=== PATIENT | female | born 1990 | race Caucasian/White ===

== ENCOUNTER 2016-09-21 14:21 | Emergency (ER) | payer SELFPAY ==
[~2016-09-21] VITALS: Ht 170.2 cm; Wt 115.2 kg
[~2016-09-21 14:21] MED LIST: BUTA1CAP29 PO; CYCL10TA2 PO; ONDA4TAB10 SL; PRED50TA PO
[2016-09-21] MEDS ORDERED: IV NORMAL SALINE 1000ML BAG 1,000 ML IV ONE (15:00)
[2016-09-21] MEDS ORDERED: FENTANYL PF 100 MCG/2 ML VIAL. IV ONE ×2 (15:00→16:30)
[2016-09-21] MEDS ORDERED: ONDANSETRON PF 4 MG/2 ML VIAL. IV ONE (15:00)
--- NOTE | 2016-09-21 15:17 | PHYS DOC ---
Past Medical History Past Medical History: Depression, Migraines Past Surgical History: Cholecystectomy, Smoking: Cigarettes Alcohol Use: None Drug Use: None Adult General Chief Complaint Chief Complaint: ABDOMINAL PAIN HPI HPI Patient is a 25 year old female who presents with upper abdominal pain with nausea and vomiting starting today. She denies fever or diarrhea. She estimates approximately 8 episodes of emesis today. She was seen for similar symptoms last month without any significant findings. LMP was last week. She does not have a PCP. Review of Systems Review of Systems Constitutional: Denies fever or chills. [] Eyes: Denies change in visual acuity, redness, or eye pain. [] HENT: Denies ear pain, nasal congestion or sore throat. [] Respiratory: Denies cough or shortness of breath. [] Cardiovascular: Denies chest pain, palpitations or edema. [] GI: Denies bloody stools or diarrhea. Reports abdominal pain, nausea, and vomiting. : Denies dysuria, hematuria or urinary frequency. [] Musculoskeletal: Denies back pain or joint pain. [] Integument: Denies rash or skin lesions. [] Neurologic: Denies headache, focal weakness or sensory changes. [] Endocrine: Denies polyuria or polydipsia. [] Psych: Denies anxiety or depression. [] All systems reviewed and negative unless otherwise stated in the HPI. Current Medications Current Medications Current Medications Medications (Trade) Dose Ordered Sig/[facility] Start Time Stop Time Status Last Admin Dose Admin Fentanyl Citrate (Fentanyl 2ml Vial) 50 mcg 1X ONCE 09/21/16 15:00 09/21/16 15:01 DC 09/21/16 15:40 50 MCG Ondansetron HCl (Zofran) 8 mg 1X ONCE 09/21/16 15:00 09/21/16 15:01 DC 09/21/16 15:40 8 MG Sodium Chloride (Iv Sodium Chloride 0.9% 1000ml Bag) 1,000 ml @ 1,000 mls/hr 1X ONCE 09/21/16 15:00 09/21/16 15:59 DC 09/21/16 15:38 1,000 MLS/HR Allergies Allergies Allergies Coded Allergies Type Severity Reaction Last Updated Verified diphenhydramine Allergy Unknown rash 11/09/15 Yes Physical Exam Physical Exam Constitutional: Well developed, well nourished, no acute distress, non-toxic appearance. [] HENT: Normocephalic, atraumatic, oropharynx moist. [] Eyes: PERRLA, EOMI, conjunctiva normal, no discharge. [] Neck: Normal range of motion, no tenderness, supple, no stridor. [] Cardiovascular: Heart rate regular rhythm, no murmur. [] Lungs & Thorax: Bilateral breath sounds clear to auscultation without wheezes, rales, or rhonchi. [] Abdomen: Bowel sounds normal, soft, diffuse upper abdominal tenderness, no masses, no pulsatile masses. [] Skin: Warm, dry, no erythema, no rash. [] Back: No midline tenderness, no CVA tenderness. [] Extremities: No tenderness, ROM intact, no edema. Distal pulses equal bilaterally. [] Neurologic: Alert and oriented X 3, normal motor function, normal sensory function, no focal deficits noted. [] Psychologic: Affect normal, judgement normal, mood normal. [] Current Patient Data Vital Signs Vital Signs Date Time Temp Pulse Resp B/P Pulse Ox O2 Delivery O2 Flow Rate FiO2 09/21/16 15:40 18 98 Room Air 09/21/16 15:00 96.2 73 120/83 96.2 Lab Values Laboratory Tests Test 09/21/16 15:15 09/21/16 15:25 Urine Color Yellow Urine Clarity Clear Urine pH 8.5 Urine Specific [place] >=1.030 Urine Protein Negativemg/dL (NEG-TRACE) Urine Glucose (UA) Negativemg/dL (NEG) Urine Ketones (Stick) 40mg/dL (NEG) Urine Blood Negative (NEG) Urine Nitrite Negative (NEG) Urine Bilirubin Negative (NEG) Urine Urobilinogen Dipstick 1.0mg/dL (0.2 mg/dL) Urine Leukocyte Esterase Negative (NEG) Urine RBC 0/HPF (0-2) Urine WBC 1-4/HPF (0-4) Urine Squamous Epithelial Cells Few/LPF Urine Bacteria Few/HPF (0-FEW) Urine Mucus Marked/LPF Urine Test Negative (NEG) White Blood Count 12.4x10^3/uL (4.0-11.0) H Red Blood Count 4.56x10^6/uL (3.50-5.40) Hemoglobin 13.3g/dL (12.0-15.5) Hematocrit 39.9% (36.0-47.0) Mean Corpuscular Volume 88fL (79-100) Mean Corpuscular Hemoglobin 29pg (25-35) Mean Corpuscular Hemoglobin Concent 33g/dL (31-37) Red Cell Distribution Width 12.2% (11.5-14.5) Platelet Count 292x10^3/uL (140-400) Neutrophils (%) (Auto) 89% (31-73) H Lymphocytes (%) (Auto) 6% (24-48) L Monocytes (%) (Auto) 4% (0-9) Eosinophils (%) (Auto) 0% (0-3) Basophils (%) (Auto) 0% (0-3) Neutrophils # (Auto) 11.1x10^3uL (1.8-7.7) H Lymphocytes # (Auto) 0.8x10^3/uL (1.0-4.8) L Monocytes # (Auto) 0.5x10^3/uL (0.0-1.1) Eosinophils # (Auto) 0.0x10^3/uL (0.0-0.7) Basophils # (Auto) 0.0x10^3/uL (0.0-0.2) Segmented Neutrophils % 90% (35-66) H Lymphocytes % 7% (24-48) L Monocytes % 3% (0-10) Platelet Estimate Adequate (ADEQUATE) Sodium Level 139mmol/L (136-145) Potassium Level 3.4mmol/L (3.5-5.1) L Chloride Level 102mmol/L (98-107) Carbon Dioxide Level 24mmol/L (21-32) Anion Gap 13 (6-14) Blood Urea Nitrogen 7mg/dL (7-20) Creatinine 0.5mg/dL (0.6-1.0) L Estimated GFR (Cockcroft-Gault) 148.0 BUN/Creatinine Ratio 14 (6-20) Glucose Level 126mg/dL (70-99) H Calcium Level 9.0mg/dL (8.5-10.1) Total Bilirubin 0.3mg/dL (0.2-1.0) Aspartate Amino Transferase (AST) 19U/L (15-37) Alanine Aminotransferase (ALT) 28U/L (14-59) Alkaline Phosphatase 68U/L (46-116) Total Protein 7.7g/dL (6.4-8.2) Albumin 3.8g/dL (3.4-5.0) Albumin/Globulin Ratio 1.0 (1.0-1.7) Lipase 135U/L (73-393) Laboratory Tests 09/21/16 15:25 Laboratory Tests 09/21/16 15:25 EKG EKG [] Radiology/Procedures Radiology/Procedures Acute abdominal x-ray does not show any sign of obstruction. There is a large amount of stool within the colon. Course & Med Decision Making Course & Med Decision Making Pertinent Labs and Imaging studies reviewed. (See chart for details) Patient is a 25-year-old female presents with upper abdominal pain with nausea and vomiting starting today. On exam, she has tenderness diffusely across the upper abdomen without lower abdominal tenderness. Her pain and nausea improved with IV fentanyl, Zofran, and fluids. Her white blood cell count is mildly elevated, likely due to you to vomiting. There are no other significant laboratory abnormalities. She is discharged home with prescription for Agar and Phenergan. She is instructed to follow-up with a primary care provider. Return precautions were discussed. She verbalizes understanding and agrees with plan. Dragon Disclaimer Dragon Disclaimer This electronic medical record was generated, in whole or in part, using a voice recognition dictation system. Departure Departure Impression: Primary Impression: Abdominal pain Additional Impression: Nausea & vomiting Disposition: 01 HOME, SELF-CARE Condition: IMPROVED Referrals: NO PCP (PCP) Patient Instructions: Abdominal Pain, [id number], Nausea and Vomiting, Easy- to-Read Additional Instructions: You were seen for abdominal pain with nausea and vomiting. There were no concerning abnormalities on your labs or x-ray. You do appear to have a large amount of stool in your colon. Please take the prescribed pain and nausea medication as directed. Do not drive or operate heavy machinery while taking pain medication. Please be sure you're drinking plenty of liquids to stay hydrated. Start with liquids only and advance diet slowly. Start with the BRAT diet when starting solid foods, bananas, rice, applesauce, and toast. Please follow-up with a primary care provider in the next 1-2 days if your symptoms continue. Return to the emergency department if you continue to have vomiting, diarrhea, bloody stools, fever, severe pain, or other new or concerning symptoms. Scripts Promethazine Hcl 25 Mg Tablet1 Tab PO PRN Q6HRS PRN NAUSEA/VOMITING #20 TAB Prov:ELIZABETH HURTADO 09/21/16 Hydrocodone/Apap 5-325 (Agar 5-325 Tablet)1 Each Tablet1 Tab PO PRN Q6HRS PRN PAIN #10 TAB Prov:ELIZABETH HURTADO 09/21/16 Problem Qualifiers Primary Impression: Abdominal pain Abdominal location: upper abdomen, unspecified Qualified Code: R10.10 - Upper abdominal pain, unspecified Additional Impression: Nausea & vomiting Vomiting type: unspecified Vomiting Intractability: non-intractable Qualified Code: R11.2 - Nausea with vomiting, unspecified ELIZABETH HURTADO Sep 21, 2016 15:17
[2016-09-21 15:32] LABS: BASO % 0 % (0-3); EOS % 0 % (0-3); HEMATOCRIT 39.9 % (36.0-47.0); HEMOGLOBIN 13.3 g/dL (12.0-15.5); LYMPH # 0.8 x10^3/uL (1.0-4.8); LYMPH % 6 % (24-48); MEAN CORPUSCULAR HEMOGLOBIN 29 pg (25-35); MEAN CORPUSCULAR HGB CONC 33 g/dL (31-37); MEAN CORPUSCULAR VOLUME 88 fL (79-100); MONO % 4 % (0-9); NEUT % 89 % (31-73); PLATELET COUNT 292 x10^3/uL (140-400); RED BLOOD COUNT 4.56 x10^6/uL (3.50-5.40); RED CELL DISTRIBUTION WIDTH 12.2 % (11.5-14.5); WHITE BLOOD COUNT 12.4 x10^3/uL (4.0-11.0)
[2016-09-21 15:35] LABS: BILIRUBIN,URINE NEGATIVE (NEG); GLUCOSE,URINE NEGATIVE (NEG); NITRITE,URINE NEGATIVE (NEG); PH,URINE 8.5
[2016-09-21 15:53] LABS: CREATININE 0.5 mg/dL (0.6-1.0); POTASSIUM 3.4 mmol/L (3.5-5.1)
[2016-09-21 15:58] LABS: ALBUMIN 3.8 g/dL (3.4-5.0); TOTAL BILIRUBIN 0.3 mg/dL (0.2-1.0); TOTAL PROTEIN 7.7 g/dL (6.4-8.2)
[2016-09-21 15:59] LABS: BACTERIA,URINE FEW /HPF (0-FEW); PROTEIN,URINE NEGATIVE (NEG-TRACE); RBC,URINE 0 /HPF (0-2); SQUAMOUS EPITHELIAL CELL,UR FEW /LPF
[2016-09-21 16:02] LABS: NEG OBC UR NEG; POS OBC UR POS
[2016-09-21 16:15] LABS: PLT ESTIMATE ADEQUATE (ADEQUATE)
[2016-09-21] MEDS ORDERED: HYDR-971 PO (16:36)
[2016-09-21] MEDS ORDERED: PROM25TA10 PO (16:36)
--- NOTE | 2016-09-21 16:43 | RAD ---
Abdomen series with chest, 09/21/2016: History: Upper abdominal pain The abdominal gas pattern is unremarkable without evidence of obstruction. There is a moderate amount of stool in the colon. No free air is seen in the abdomen. Surgical clips are present in the right upper quadrant. There is no evidence of organomegaly. Lower pelvic calcifications are compatible with phleboliths. The heart size is normal. The lungs are clear. IMPRESSION: No acute abdominal abnormality is detected.
[2016-09-21 16:46] VITALS: BP 115/74
== END 2016-09-21 16:57 | disposition home or self-care (01) ==
LOC: ER 14:21
DX: R10.10 Upper abdominal pain, unspecified (principal); R11.2 Nausea with vomiting, unspecified; F17.210 Nicotine dependence, cigarettes, uncomplicated; F32.9 Major depressive disorder, single episode, unspecified; Z90.49 Acquired absence of other specified parts of digestive tract; Z98.890 Other specified postprocedural states; Z88.8 Allergy status to other drugs, medicaments and biological substances
CPT/HCPCS: 36415; 74022; 80053; 81001; 81025; 83690; 85007; 85027; 96361; 96374; 96375; 96376; 99285; J2405; J3010; J7030

== ENCOUNTER 2016-10-20 12:25 | Emergency (ER) | payer SELFPAY ==
[~2016-10-20] VITALS: Ht 165.1 cm; Wt 73.9 kg
[~2016-10-20 12:25] MED LIST changes: +HYDR-971 PO; +PROM25TA10 PO
[2016-10-20 14:03] VITALS: BP 128/80
--- NOTE | 2016-10-20 14:14 | PHYS DOC ---
Past Medical History Past Medical History: Depression, Migraines Past Surgical History: Cholecystectomy, Alcohol Use: None Drug Use: None Adult General Chief Complaint Chief Complaint: FLU SYMPTOM HPI HPI Patient is a 25 year old female presents to emergency department complaining of fever chills generalized body aches and discomfort and occasional ear pain and discomfort. She states she had some nausea feeling although has not vomited. She denies any diarrhea. She has been taken ibuprofen for generalized body aches and discomfort with minimal relief. She states that she's been exposed to the flu at work. She does have a sick roommate. Review of Systems Review of Systems Constitutional: subjective fever Eyes: Denies change in visual acuity, redness, or eye pain [] HENT: nasal congestion slight sore throat [] Respiratory: cough denies shortness of breath [] Cardiovascular: No additional information not addressed in HPI [] GI: Denies abdominal pain. C/o nausea denies vomiting, denies diarrhea : Denies dysuria or hematuria [] Musculoskeletal: Denies back pain or joint pain [] Integument: Denies rash or skin lesions [] Neurologic: Denies headache, focal weakness or sensory changes [] Allergies Allergies Allergies Coded Allergies Type Severity Reaction Last Updated Verified diphenhydramine Allergy Unknown rash 11/09/15 Yes Physical Exam Physical Exam Constitutional: Well developed, well nourished, no acute distress, non-toxic appearance. [] HENT: Normocephalic, atraumatic, bilateral external ears normal, oropharynx moist, no oral exudates, nose normal. Bilateral tympanic membranes appear to be normal. Throat with erythematous no exudate, no postnasal drip noted. Eyes: PERRLA, EOMI, conjunctiva normal, no discharge. [] Neck: Normal range of motion, no tenderness, supple, no stridor. [] Cardiovascular:Heart rate regular rhythm, no murmur [] Lungs & Thorax: Bilateral breath sounds clear to auscultation [] Skin: Warm, dry, no erythema, no rash. [] Back: No tenderness Extremities: No tenderness, no cyanosis, no clubbing, ROM intact, no edema. [] Neurologic: Alert and oriented X 3, normal motor function, normal sensory function, no focal deficits noted. [] Psychologic: Affect normal, judgement normal, mood normal. [] Current Patient Data Vital Signs Vital Signs Date Time Temp Pulse Resp B/P Pulse Ox O2 Delivery O2 Flow Rate FiO2 10/20/16 14:03 93 17 99 Room Air Lab Values Laboratory Tests Test 10/20/16 14:00 Influenza Type A Antigen Negative (NEGATIVE) Influenza Type B Antigen Negative (NEGATIVE) EKG EKG [] Radiology/Procedures Radiology/Procedures [] Course & Med Decision Making Course & Med Decision Making Pertinent Labs and Imaging studies reviewed. (See chart for details) Wounds as well as were negative. Patient will be encouraged to drink plenty fluids such as water or Gatorade or propel. Tylenol or ibuprofen for fever chills or generalized body aches and discomfort [id number] medications may be used for cough and congestion. Recommended following up primary care physician's 5-7 days. Since symptoms to return back to emergency department as been provided. Patient be discharged home in stable condition. [] Dragon Disclaimer Dragon Disclaimer This electronic medical record was generated, in whole or in part, using a voice recognition dictation system. Departure Departure Impression: Primary Impression: Upper respiratory infection Disposition: 01 HOME, SELF-CARE Condition: STABLE Referrals: NO PCP (PCP) Patient Instructions: Upper Respiratory Infection, Adult, [id number] Additional Instructions: Home to rest Tylenol or Ibuprofen for fever, chills or generalized body aches and discomfort Drink plenty of fluids such as water, gatorade, or propel You may use over the counter medication for cough and congestion as directed by manufacture Followup with primary care provide in 5-7 days Return to emergency department as needed for signs and symptoms that become worse. LILI TSAI NP Oct 20, 2016 14:14
[2016-10-20 15:05] LABS: OBC FLU VALID
== END 2016-10-20 15:33 | disposition home or self-care (01) ==
LOC: ER 12:32
DX: J06.9 Acute upper respiratory infection, unspecified (principal); G43.909 Migraine, unspecified, not intractable, without status migrainosus; Z88.8 Allergy status to other drugs, medicaments and biological substances
CPT/HCPCS: 87804; 99284

== ENCOUNTER 2017-03-10 19:51 | Emergency (ER) | payer SELFPAY ==
[~2017-03-10] VITALS: Ht 170.2 cm; Wt 56.7 kg
[2017-03-10 20:10] VITALS: BP 136/60
[2017-03-10] MEDS ORDERED: SULF1TAB24 PO (20:51)
[2017-03-10] MEDS ORDERED: PRED50TA PO (20:51)
--- NOTE | 2017-03-10 20:51 | PHYS DOC ---
Past Medical History Past Medical History: Depression, Migraines Past Surgical History: Appendectomy, Cholecystectomy, Alcohol Use: None Drug Use: None Adult General Chief Complaint Chief Complaint: INSECT BITE HPI HPI Patient is a 26 year old female who presents with what she believes is a spider bite on the right thigh that she noted yesterday. Patient stated the area has grown red and bigger. Patient denies any drainage from the area. Review of Systems Review of Systems Constitutional: Denies fever or chills [] Eyes: Denies change in visual acuity, redness, or eye pain [] Musculoskeletal: Denies back pain or joint pain [] Integument: spider bite on the right thigh Neurologic: Denies headache, focal weakness or sensory changes [] Endocrine: Denies polyuria or polydipsia [] Allergies Allergies Allergies Coded Allergies Type Severity Reaction Last Updated Verified diphenhydramine Allergy Unknown rash 11/09/15 Yes Physical Exam Physical Exam Constitutional: Well developed, well nourished, no acute distress, non-toxic appearance. [] HENT: Normocephalic, atraumatic, bilateral external ears normal, oropharynx moist, no oral exudates, nose normal. [] Skin: right inner thigh with an area of cellulitis approx. 3X3 cm with a bite humphrey in the center. The area is warm and tender to touch but not fluctuant. Back: No tenderness, no CVA tenderness. [] Extremities: No tenderness, no cyanosis, no clubbing, ROM intact, no edema. [] Neurologic: Alert and oriented X 3, normal motor function, normal sensory function, no focal deficits noted. [] Psychologic: Affect normal, judgement normal, mood normal. [] Current Patient Data Vital Signs Vital Signs Date Time Temp Pulse Resp B/P (MAP) Pulse Ox O2 Delivery O2 Flow Rate FiO2 03/10/17 20:10 98.2 72 16 98 Room Air 98.2 EKG EKG [] Radiology/Procedures Radiology/Procedures [] Course & Med Decision Making Course & Med Decision Making Pertinent Labs and Imaging studies reviewed. (See chart for details) Patient is in the ED with right thigh cellulitis, she believes is from a spider bite. She was discharged with Bactrim for 10 days, and prednisone. Provided return precautions and discharged in stable condition. Dragon Disclaimer Dragon Disclaimer This electronic medical record was generated, in whole or in part, using a voice recognition dictation system. Departure Departure Impression: Primary Impression: Cellulitis of right lower extremity Disposition: HOME, SELF-CARE Condition: STABLE Referrals: NO PCP (PCP) Follow-up with your doctor in 1-2 weeks Patient Instructions: Cellulitis, [id number] Additional Instructions: You were seen with right thigh cellulitis. Keep the area clean and dry. Take the prescribed antibiotics until completed. Come back to the ED if symptoms worsen. Scripts Prednisone (PREDNISONE) 50 Mg Tablet 1 TAB PO DAILY, #5 TAB Prov: ROSELIA LARRY APRN 03/10/17 Sulfamethoxazole/Trimethoprim (BACTRIM DS TABLET) 1 Each Tablet 1 TAB PO BID, #20 TAB Prov: ROSELIA LARRY APRN 03/10/17 ROSELIA LARRY APRN Mar 10, 2017 20:51
[2017-03-10] MEDS ORDERED: DIPHTH,PERTUSS(ACELL),TET TOX 0.5 ML DISP.SYRIN. VAX IM ONE (21:30)
== END 2017-03-10 21:07 | disposition home or self-care (01) ==
LOC: ER 19:51
DX: L03.115 Cellulitis of right lower limb (principal); G43.909 Migraine, unspecified, not intractable, without status migrainosus; Z88.8 Allergy status to other drugs, medicaments and biological substances; T63.301A Toxic effect of unspecified spider venom, accidental (unintentional), initial encounter; Y93.89 Activity, other specified; Y99.8 Other external cause status; Y92.89 Other specified places as the place of occurrence of the external cause
CPT/HCPCS: 99283

== ENCOUNTER 2019-09-04 15:02 | Emergency (ER) | payer SELFPAY ==
[~2019-09-04] VITALS: Ht 172.7 cm; Wt 68.0 kg
[~2019-09-04 15:02] MED LIST changes: +HYDR-3164 PO; -HYDR-971 PO; +SULF1TAB24 PO
--- NOTE | 2019-09-04 15:31 | PHYS DOC ---
Past Medical History Past Medical History: Depression, Migraines Past Surgical History: Appendectomy, Cholecystectomy, Alcohol Use: None Drug Use: None Adult General Chief Complaint Chief Complaint: MENSTRUAL PAIN/CRAMPS [facility] HPI Patient is a 28 year old female with history of depression, migraine headaches, who presents to the ED today complaining of vaginal bleeding that began August 21, 2019 patient denies any abdominal pain, nausea or vomiting. She states she doesn't know if she is or not. She reports she called ask a nurse and spoke to a doctor yesterday who informed her she needs to be evaluated and needs to be NPO until she is evaluted, she states she was not comfortable talking to a man and refused to continue with the conversation neither did she stay NPO. She is laughing as we talk, RN in the room. Review of Systems Review of Systems Constitutional: Denies fever or chills [] Eyes: Denies change in visual acuity, redness, or eye pain [] HENT: Denies nasal congestion or sore throat [] Respiratory: Denies cough or shortness of breath [] Cardiovascular: No additional information not addressed in HPI [] GI: Reports Vaginal bleeding. Denies abdominal pain, nausea, vomiting, bloody stools or diarrhea [] : Denies dysuria or hematuria [] Musculoskeletal: Denies back pain or joint pain [] Integument: Denies rash or skin lesions [] Neurologic: Denies headache, focal weakness or sensory changes [] All other systems were reviewed and found to be within normal limits, except as documented in this note. Allergies Allergies Allergies Coded Allergies Type Severity Reaction Last Updated Verified diphenhydramine Allergy Unknown rash 11/09/15 Yes Physical Exam Physical Exam Constitutional: Well developed, well nourished, no acute distress, non-toxic appearance. [] HENT: Normocephalic, atraumatic, bilateral external ears normal, oropharynx moist, no oral exudates, nose normal. [] Eyes: PERRLA, EOMI, conjunctiva normal, no discharge. [] Neck: Normal range of motion, no tenderness, supple, no stridor. [] Cardiovascular:Heart rate regular rhythm, no murmur [] Lungs & Thorax: Bilateral breath sounds clear to auscultation [] Abdomen: Bowel sounds normal, soft, no tenderness, no masses, no pulsatile masses. [] Pelvic exam External pelvic appears normal, cervix is visualized, no CMT no adnexal tenderness, trace amount of bright red blood in the vaginal vault Skin: Warm, dry, no erythema, no rash. [] Back: No tenderness, no CVA tenderness. [] Extremities: No tenderness, no cyanosis, no clubbing, ROM intact, no edema. [] Neurologic: Alert and oriented X 3, normal motor function, normal sensory function, no focal deficits noted. [] Psychologic: Laughing during the conversation Current Patient Data Vital Signs Vital Signs Date Time Temp Pulse Resp B/P (MAP) Pulse Ox O2 Delivery O2 Flow Rate FiO2 09/04/19 17:18 64 16 121/53 (75) 98 Room Air 09/04/19 15:15 98.2 98.2 Lab Values Laboratory Tests Test 09/04/19 15:05 09/04/19 15:15 09/04/19 15:45 Urine Collection Type Unknown Urine Color [place] Urine Clarity Clear Urine pH 5.5 Urine Specific [place] >=1.030 Urine Protein Negative mg/dL (NEG-TRACE) Urine Glucose (UA) Negative mg/dL (NEG) Urine Ketones (Stick) Negative mg/dL (NEG) Urine Blood Moderate (NEG) Urine Nitrite Negative (NEG) Urine Bilirubin Small (NEG) Urine Urobilinogen Dipstick 0.2 mg/dL (0.2 mg/dL) Urine Leukocyte Esterase Negative (NEG) Urine RBC 6-10 /HPF (0-2) Urine WBC Occ /HPF (0-4) Urine Squamous Epithelial Cells Few /LPF Urine Bacteria 0 /HPF (0-FEW) Urine Mucus Marked /LPF Urine Opiates Screen Neg (NEG) Urine Methadone Screen Neg (NEG) Urine Barbiturates Neg (NEG) Urine Phencyclidine Screen Neg (NEG) Urine Amphetamine/Methamphetamine Neg (NEG) Urine Benzodiazepines Screen Neg (NEG) Urine Cocaine Screen Neg (NEG) Urine Cannabinoids Screen Neg (NEG) Urine Ethyl Alcohol Neg (NEG) POC Urine HCG, Qualitative Hcg positive (Negative) White Blood Count 8.6 x10^3/uL (4.0-11.0) Red Blood Count 4.76 x10^6/uL (3.50-5.40) Hemoglobin 14.2 g/dL (12.0-15.5) Hematocrit 42.3 % (36.0-47.0) Mean Corpuscular Volume 89 fL (79-100) Mean Corpuscular Hemoglobin 30 pg (25-35) Mean Corpuscular Hemoglobin Concent 34 g/dL (31-37) Red Cell Distribution Width 12.8 % (11.5-14.5) Platelet Count 268 x10^3/uL (140-400) Neutrophils (%) (Auto) 78 % (31-73) H Lymphocytes (%) (Auto) 15 % (24-48) L Monocytes (%) (Auto) 6 % (0-9) Eosinophils (%) (Auto) 1 % (0-3) Basophils (%) (Auto) 1 % (0-3) Neutrophils # (Auto) 6.7 x10^3/uL (1.8-7.7) Lymphocytes # (Auto) 1.3 x10^3/uL (1.0-4.8) Monocytes # (Auto) 0.5 x10^3/uL (0.0-1.1) Eosinophils # (Auto) 0.1 x10^3/uL (0.0-0.7) Basophils # (Auto) 0.0 x10^3/uL (0.0-0.2) Maternal Serum HCG Beta Subunit 6387 mIU/mL (0-5) H Sodium Level 139 mmol/L (136-145) Potassium Level 3.7 mmol/L (3.5-5.1) Chloride Level 102 mmol/L (98-107) Carbon Dioxide Level 28 mmol/L (21-32) Anion Gap 9 (6-14) Blood Urea Nitrogen 8 mg/dL (7-20) Creatinine 0.6 mg/dL (0.6-1.0) Estimated GFR (Cockcroft-Gault) 117.4 BUN/Creatinine Ratio 13 (6-20) Glucose Level 90 mg/dL (70-99) Calcium Level 8.6 mg/dL (8.5-10.1) Total Bilirubin 0.3 mg/dL (0.2-1.0) Aspartate Amino Transferase (AST) 16 U/L (15-37) Alanine Aminotransferase (ALT) 19 U/L (14-59) Alkaline Phosphatase 67 U/L (46-116) Total Protein 7.2 g/dL (6.4-8.2) Albumin 3.6 g/dL (3.4-5.0) Albumin/Globulin Ratio 1.0 (1.0-1.7) Ethyl Alcohol Level < 10 mg/dL (0-10) Laboratory Tests 09/04/19 15:45 Laboratory Tests 09/04/19 15:45 Microbiology 09/04/19 Wet Prep - Final, Complete EKG EKG [] Radiology/Procedures Radiology/Procedures []PROCEDURE: OB <14 WKS W/TV EXAM: Obstetric sonogram. HISTORY: Vaginal bleeding. TECHNIQUE: Sonographic imaging of the pelvis was performed. COMPARISON: None. FINDINGS: The uterus measures 9.5 x 4.6 cm. The cervix is closed and measures 3.3 cm in length. There is a single intrauterine gestational sac with pole. The crown-rump length is 3.5 mm, corresponding with a gestational age of 6 weeks and 0 days. The mean sac diameter is 1.20 cm, corresponding with a gestational age of 6 weeks and 0 days. The distal sac is abnormally located within the lower uterine segment and is abnormal in configuration. No subchorionic hematoma is seen. No cardiac activity is seen. No yolk sac is seen. The right ovary is unremarkable. The left ovary is not seen. IMPRESSION: 1. Abnormally positioned gestational sac within the lower uterine segment with abnormal configuration. There is a pole with crown-rump length corresponding with a gestational age of 6 weeks and 0 days. No cardiac activity is seen. This may be due to relative early gestation. However, given the aforementioned abnormality of the gestational sac, this is more concerning for intrauterine demise. Short-term follow-up within one week can be performed for confirmation. 2. Obscured left ovary. Electronically signed by: Kae Najera MD (09/04/2019 4:40 PM) [facility] [place] DICTATED and SIGNED BY: KAE NAJERA MD DATE: 09/04/19 1640 Course & Med Decision Making Course & Med Decision Making Pertinent Labs and Imaging studies reviewed. (See chart for details) This is a 28-year-old female patient presented to the ED today with vaginal bleeding that began August 21, 2019. Positive urine hCG, urine analysis is negative for infection. Beta hCG is 6387, CBC with normal WBC, normal hemoglobin and hematocrit. CMP with no acute findings, wet prep negative. Blood group A positive OB ultrasound -Abnormally positioned gestational sac within the lower uterine segment with abnormal configuration. There is a pole with crown-rump length corresponding with a gestational age of 6 weeks and 0 days. No cardiac activity is seen. This may be due to relative early gestation. However, given the aforementioned abnormality of the gestational sac, this is more concerning for intrauterine demise. Short-term follow-up within one week can be performed for confirmation. The above results were discussed with patient with most concerning issue being demise. Instructed this patient to follow up with an [facility] in the next 2 days for beta hCG and follow-up ultrasound. Recommended bedrest. Provided return precautions. Dragon Disclaimer Dragon Disclaimer This electronic medical record was generated, in whole or in part, using a voice recognition dictation system. Departure Departure Impression: Primary Impression: Threatened miscarriage Disposition: 01 HOME, SELF-CARE Condition: STABLE Referrals: NO PCP (PCP) ALL GEE MD follow up in 2 days with your OBGYN Patient Instructions: Threatened Miscarriage, [id number] Additional Instructions: You were evaluated in the emergency room for vaginal bleeding in . Your OB ultrasound shows you are 6 weeks though we could not find any activity, there is concern you could have demise. We would like you to follow-up with your [facility] in 2 days for repeat beta hCG as well as ultrasound. Your beta hCG today is 6387. Your blood type is A+ ROSELIA LARRY APRN Sep 04, 2019 15:31
[2019-09-04 15:40] LABS: BILIRUBIN,URINE SMALL (NEG); CLARITY,URINE CLEAR; COLOR,URINE AMBER; NITRITE,URINE NEGATIVE (NEG); PH,URINE 5.5; PROTEIN,URINE NEGATIVE (NEG-TRACE); UROBILINOGEN,URINE 0.2 mg/dL (0.2 mg/dL)
[2019-09-04 15:48] LABS: SQUAMOUS EPITHELIAL CELL,UR FEW /LPF
[2019-09-04 15:49] LABS: BACTERIA,URINE 0 /HPF (0-FEW); WBC,URINE OCC /HPF (0-4)
[2019-09-04 15:59] LABS: BASO % 1 % (0-3); EOS # 0.1 x10^3/uL (0.0-0.7); EOS % 1 % (0-3); HEMATOCRIT 42.3 % (36.0-47.0); HEMOGLOBIN 14.2 g/dL (12.0-15.5); LYMPH # 1.3 x10^3/uL (1.0-4.8); LYMPH % 15 % (24-48); MEAN CORPUSCULAR HEMOGLOBIN 30 pg (25-35); MEAN CORPUSCULAR HGB CONC 34 g/dL (31-37); MEAN CORPUSCULAR VOLUME 89 fL (79-100); MONO # 0.5 x10^3/uL (0.0-1.1); MONO % 6 % (0-9); NEUT # 6.7 x10^3/uL (1.8-7.7); NEUT % 78 % (31-73); PLATELET COUNT 268 x10^3/uL (140-400); RED BLOOD COUNT 4.76 x10^6/uL (3.50-5.40); RED CELL DISTRIBUTION WIDTH 12.8 % (11.5-14.5); WHITE BLOOD COUNT 8.6 x10^3/uL (4.0-11.0)
[2019-09-04 16:08] LABS: CALCIUM 8.6 mg/dL (8.5-10.1); CREATININE 0.6 mg/dL (0.6-1.0); GFR 117.4; POTASSIUM 3.7 mmol/L (3.5-5.1)
[2019-09-04 16:12] LABS: BARBITURATES NEG (NEG); BENZODIAZEPINES NEG (NEG); CANNABINOIDS NEG (NEG); COCAINE NEG (NEG); METHADONE NEG (NEG); OPIATES NEG (NEG); PHENCYCLIDINE NEG (NEG)
[2019-09-04 16:13] LABS: AMPHETAMINE/METHAMPHETAMINE NEG (NEG)
[2019-09-04 16:13] LABS: ALBUMIN 3.6 g/dL (3.4-5.0); TOTAL BILIRUBIN 0.3 mg/dL (0.2-1.0); TOTAL PROTEIN 7.2 g/dL (6.4-8.2)
--- NOTE | 2019-09-04 16:43 | RAD ---
EXAM: Obstetric sonogram. HISTORY: Vaginal bleeding. TECHNIQUE: Sonographic imaging of the pelvis was performed. COMPARISON: None. FINDINGS: The uterus measures 9.5 x 4.6 cm. The cervix is closed and measures 3.3 cm in length. There is a single intrauterine gestational sac with pole. The crown-rump length is 3.5 mm, corresponding with a gestational age of 6 weeks and 0 days. The mean sac diameter is 1.20 cm, corresponding with a gestational age of 6 weeks and 0 days. The distal sac is abnormally located within the lower uterine segment and is abnormal in configuration. No subchorionic hematoma is seen. No cardiac activity is seen. No yolk sac is seen. The right ovary is unremarkable. The left ovary is not seen. IMPRESSION: 1. Abnormally positioned gestational sac within the lower uterine segment with abnormal configuration. There is a pole with crown-rump length corresponding with a gestational age of 6 weeks and 0 days. No cardiac activity is seen. This may be due to relative early gestation. However, given the aforementioned abnormality of the gestational sac, this is more concerning for intrauterine demise. Short-term follow-up within one week can be performed for confirmation. 2. Obscured left ovary. Electronically signed by: Kae Najera MD (09/04/2019 4:40 PM) [facility] – [place]
[2019-09-04 17:18] VITALS: BP 121/53
[2019-09-06 18:09] LABS: GC PROBE Negative (Negative)
== END 2019-09-04 19:41 | disposition home or self-care (01) ==
LOC: ER 15:02
DX: O20.0 Threatened abortion (principal); O99.341 Other mental disorders complicating pregnancy, first trimester; G43.909 Migraine, unspecified, not intractable, without status migrainosus; Z90.89 Acquired absence of other organs; Z90.49 Acquired absence of other specified parts of digestive tract; Z88.8 Allergy status to other drugs, medicaments and biological substances; Z98.890 Other specified postprocedural states; Z3A.01 Less than 8 weeks gestation of pregnancy
CPT/HCPCS: 36415; 76801; 76817; 80053; 80307; 81001; 81025; 84702; 85025; 86850; 86900; 86901; 87491; 87591; 99285; G0480; Q0111

== ENCOUNTER 2020-01-07 14:45 | Emergency (ER) | payer SELFPAY ==
[~2020-01-07] VITALS: Ht 175.3 cm; Wt 86.0 kg
[2020-01-07 14:45] VITALS: BP 141/79
[2020-01-07] MEDS ORDERED: HYDR-3164 PO (15:44)
[2020-01-07] MEDS ORDERED: PRED20TA PO (15:45)
[2020-01-07] MEDS ORDERED: DEXAMETHASONE SOD PHOS 20 MG/5 ML VIAL. IM ONE (15:45)
--- NOTE | 2020-01-07 15:46 | PHYS DOC ---
Past Medical History Past Medical History: Depression, Migraines Past Surgical History: Appendectomy, Cholecystectomy, Smoking Status: Current Every Day Smoker Alcohol Use: Occasionally Drug Use: None General Adult EDM: Chief Complaint: UPPER EXTREMITY PAIN HPI: HPI: Patient is a 29-year-old female who does a lot of repetitive movements and heavy lifting at work who presents with neck pain with pain that radiates down into h er right arm. This pain is made worse with certain movements of her neck and her arm. She denies any weakness in the arm just pain. [] Review of Systems: Review of Systems: Constitutional: Denies fever or chills. [] Eyes: Denies change in visual acuity. [] HENT: Denies nasal congestion or sore throat. [] Respiratory: Denies cough or shortness of breath. [] Cardiovascular: Denies chest pain or edema. [] GI: Denies abdominal pain, nausea, vomiting, bloody stools or diarrhea. [] : Denies dysuria. [] Musculoskeletal: Denies back pain or joint pain. [] Integument: Denies rash. [] Neurologic: Per HPI [] Endocrine: Denies polyuria or polydipsia. [] Lymphatic: Denies swollen glands. [] Psychiatric: Denies depression or anxiety. [] Heart Score: Risk Factors: Risk Factors: DM, Current or recent (<one month) smoker, HTN, HLP, family history of CAD, obesity. Risk Scores: Score 0 - 3: 2.5% MACE over next 6 weeks - Discharge Home Score 4 - 6: 20.3% MACE over next 6 weeks - Admit for Clinical Observation Score 7 - 10: 72.7% MACE over next 6 weeks - Early Invasive Strategies Allergies: Allergies: Allergies Coded Allergies Type Severity Reaction Last Updated Verified diphenhydramine Allergy Unknown rash 11/09/15 Yes Physical Exam: PE: Constitutional: Well developed, well nourished, no acute distress, non-toxic appearance. [] HENT: Normocephalic, atraumatic, bilateral external ears normal, oropharynx moist, no oral exudates, nose normal. [] Eyes: PERRLA, EOMI, conjunctiva normal, no discharge. [] Neck: Normal range of motion, no tenderness, supple, no stridor. [] Cardiovascular:Heart rate regular rhythm, no murmur [] Lungs & Thorax: Bilateral breath sounds clear to auscultation [] Abdomen: Bowel sounds normal, soft, no tenderness, no masses, no pulsatile masses. [] Skin: Warm, dry, no erythema, no rash. [] Back: No tenderness, no CVA tenderness. [] Extremities: No tenderness, no cyanosis, no clubbing, ROM intact, no edema. [] Neurologic: Pain in the right arm with axial compression there is some right- sided paraspinal muscle spasm in the C5-6 region. [] Psychologic: Anxious [] Current Patient Data: Vital Signs: Vital Signs Date Time Temp Pulse Resp B/P (MAP) Pulse Ox O2 Delivery O2 Flow Rate FiO2 01/07/20 14:45 98.7 105 16 141/79 (99) 98 Room Air 98.7 EKG: EKG: [] Radiology/Procedures: Radiology/Procedures: [] Course & Med Decision Making: Course & Med Decision Making Pertinent Labs and Imaging studies reviewed. (See chart for details) [] Dragon Disclaimer: Dragon Disclaimer: This electronic medical record was generated, in whole or in part, using a voice recognition dictation system. Departure Departure Impression: Primary Impression: Cervical radiculopathy Disposition: HOME, SELF-CARE Condition: STABLE Referrals: NO PCP (PCP) [place] [place] MD Call Dr. Pritchett's office on Thursday to schedule a follow-up appointment Patient Instructions: Cervical Radiculopathy Scripts Prednisone (PREDNISONE) 20 Mg Tablet 1 TAB PO TID PRN for COUGH for 5 Days, #15 TAB Prov: JAY DAMON DO 01/07/20 Hydrocodone/Apap 5-325 (NORCO 5-325 TABLET) 1 Each Tablet 1 TAB PO PRN Q6HRS PRN for PAIN, #15 TAB 0 Refills Prov: JAY DAMON DO 01/07/20 JAY DAMON DO January 07, 2020 15:46
== END 2020-01-07 16:00 | disposition home or self-care (01) ==
LOC: ER 14:45
DX: M54.12 Radiculopathy, cervical region (principal); G43.909 Migraine, unspecified, not intractable, without status migrainosus; F17.200 Nicotine dependence, unspecified, uncomplicated; Z88.8 Allergy status to other drugs, medicaments and biological substances
CPT/HCPCS: 96372; 99283; J1100